=== PATIENT | male | born 1960 | race Caucasian/White ===

== ENCOUNTER 2017-10-21 20:30 | Emergency (ER) | payer OTHER ==
[~2017-10-21] VITALS: Ht 182.9 cm; Wt 97.5 kg
[2017-10-21] MEDS ORDERED: IBUPROFEN 600600 M1 PO (21:30)
[2017-10-21] MEDS ORDERED: NORCO 5-325 TA1 EACH PO (21:30)
[2017-10-21] MEDS ORDERED: SENNA-DOCUSATE1 EACH PO (21:30)
[2017-10-21 22:56] VITALS: BP 122/93
== END 2017-10-21 22:58 | disposition home or self-care (01) ==
LOC: ER 20:30
DX: S63.502A Unspecified sprain of left wrist, initial encounter (principal); F17.210 Nicotine dependence, cigarettes, uncomplicated; X58.XXXA Exposure to other specified factors, initial encounter; Y93.89 Activity, other specified; Y92.89 Other specified places as the place of occurrence of the external cause; Y99.8 Other external cause status

== ENCOUNTER 2017-10-25 17:57 | Emergency (ER) | payer OTHER ==
[~2017-10-25] VITALS: Ht 182.9 cm; Wt 97.5 kg
[~2017-10-25 17:57] MED LIST: IBUPROFEN 600600 M1 PO; NORCO 5-325 TA1 EACH PO; SENNA-DOCUSATE1 EACH PO
[2017-10-25 18:13] VITALS: BP 140/87
[2017-10-25] MEDS ORDERED: HYDROCODONE-AP1 EAC6 PO (18:24)
[2017-10-25] MEDS ORDERED: IBUPROFEN 600600 M1 PO (18:24)
[2017-10-25] MEDS ORDERED: CENTANY30 GM TOP (18:25)
== END 2017-10-25 19:04 | disposition home or self-care (01) ==
LOC: ER 17:57
DX: S63.502A Unspecified sprain of left wrist, initial encounter (principal); F17.210 Nicotine dependence, cigarettes, uncomplicated; X58.XXXA Exposure to other specified factors, initial encounter; Y93.89 Activity, other specified; Y92.89 Other specified places as the place of occurrence of the external cause; Y99.8 Other external cause status